=== PATIENT | male | born 1990 | race Caucasian/White ===

== ENCOUNTER → 2018-12-06 | Outpatient (CLI) | payer OTHER ==
[~2018-12-06] MED LIST: AFLURIA 2045 MCG/0.4; ATIVAN0.5 MG PO; ATIVAN1 MG PO; BACLOFEN; BACLOFEN 10MG T10 M1 PO; Baclofen Pump; CHILDREN'S ACET80 MG PO; DIAZEPAM5 MG/5 M1 PO; EFFEXOR XR75 MG PO; LIORESAL I500 MCG/ML; LOPRESSOR25 PO; LORAZEPAM 0.50.5 MG PO; LORTAB PO; METOPROLOL SUCC25 M1 PO; NYSTATIN15 GM TOP; ONDANSETRON HCL4 M2 PO; OXYCODONE20 MG/1 M1 PO; PERCOCET 5-3251 EACH PO; PHENERGAN 25 MG25 M1 PO; PNEUMOVAX25 MCG/0.5; PROZAC 20 MG20 M1 PO; PROZAC40 MG PO; RITALIN10 MG PO; ZOFRAN ODT4 MG PO
== END ==
LOC: HYPER 11-23 13:11
DX: L89.312 Pressure ulcer of right buttock, stage 2 (principal); S91.301D Unspecified open wound, right foot, subsequent encounter; G80.1 Spastic diplegic cerebral palsy; G80.9 Cerebral palsy, unspecified; E66.9 Obesity, unspecified; R60.0 Localized edema; F32.9 Major depressive disorder, single episode, unspecified; F41.9 Anxiety disorder, unspecified; Z68.42 Body mass index [BMI] 45.0-49.9, adult; X58.XXXD Exposure to other specified factors, subsequent encounter

== ENCOUNTER → 2020-02-03 | Outpatient (CLI) | payer OTHER | LOC: HYPER 01-23 16:06 | PROVIDERS: ATTEND Emergency Medicine | DX: I89.0 Lymphedema, not elsewhere classified (principal); G80.1 Spastic diplegic cerebral palsy; G91.4 Hydrocephalus in diseases classified elsewhere; F41.9 Anxiety disorder, unspecified; F32.9 Major depressive disorder, single episode, unspecified ==

== ENCOUNTER → 2020-02-19 | Outpatient (CLI) | payer OTHER | LOC: HYPER 10:53 | PROVIDERS: ATTEND Emergency Medicine | DX: I89.0 Lymphedema, not elsewhere classified (principal); G80.1 Spastic diplegic cerebral palsy; G91.4 Hydrocephalus in diseases classified elsewhere; R60.0 Localized edema; E66.01 Morbid (severe) obesity due to excess calories; F41.9 Anxiety disorder, unspecified; F32.9 Major depressive disorder, single episode, unspecified; Z68.43 Body mass index [BMI] 50.0-59.9, adult ==

== ENCOUNTER → 2020-03-11 | Outpatient (CLI) | payer OTHER | LOC: HYPER 10:54 | PROVIDERS: ATTEND Emergency Medicine | DX: I89.0 Lymphedema, not elsewhere classified (principal); G80.1 Spastic diplegic cerebral palsy; G91.4 Hydrocephalus in diseases classified elsewhere; R60.0 Localized edema; E66.01 Morbid (severe) obesity due to excess calories; F41.9 Anxiety disorder, unspecified; F32.9 Major depressive disorder, single episode, unspecified; Z68.43 Body mass index [BMI] 50.0-59.9, adult ==

== ENCOUNTER → 2020-04-29 | Outpatient (CLI) | payer OTHER | LOC: HYPER 10:28 | PROVIDERS: ATTEND Emergency Medicine | DX: I89.0 Lymphedema, not elsewhere classified (principal); G80.1 Spastic diplegic cerebral palsy; G91.4 Hydrocephalus in diseases classified elsewhere; R60.0 Localized edema; E66.01 Morbid (severe) obesity due to excess calories; F41.9 Anxiety disorder, unspecified; F32.9 Major depressive disorder, single episode, unspecified; Z68.43 Body mass index [BMI] 50.0-59.9, adult ==

== ENCOUNTER 2020-08-19 17:14 | Inpatient (IN) | payer OTHER ==
[~2020-08-19] VITALS: Ht 157.5 cm; Wt 126.5 kg
--- NOTE | ~2020-08-19 | TEE ---
[facility] [place] [address] TRANSESOPHAGEAL ECHOCARDIOGRAM Name: TARUN JONES Room #: 352-P ADM IN M.R.#: [id number] Admission: 08/19/20 Attend Phys: Irvin Moe MD Discharge: Date of : 86 Report #: [id number] THIS REPORT FOR: cc: Maura Mccoy MD, Nora P. MD Santiago, Patrick MD [facility] ~ APPROVED REPORT Study performed: 08/20/2020 10:54:22 EXAM: Comprehensive 2D, Doppler, and color-flow Echocardiogram Patient Location: Bedside Room #: [facility] Status: routine BSA: 2.24 HR: 85 bpm BP: 158/108 mmHg Rhythm: NSR Other Information Study Quality: Poor/Limited measurements Technically limited study due to morbid obesity. Indications Pulmonary Embolism, Elevated BNP, Possible CHF, shortness of breath. Hx: HTN, Cerebral Palsy. 2D Dimensions IVSd: 14.12 (7-11mm) LVOT Diam: 20.52 (18-24mm) LVDd: 38.20 mm PWd: 13.65 (7-11mm) Ascending Ao: 32.02 (22-36mm) LVDs: 30.74 (25-40mm) Aortic Root: 36.95 mm Aortic Valve AoV Peak Manny.: 1.05 m/s AO Peak Gr.: 4.37 mmHg Mitral Valve E/A Ratio: 1.5 MV Decel. Time: 180.64 ms MV E Max Manny.: 1.00 m/s [facility] [address] [address] TRANSESOPHAGEAL ECHOCARDIOGRAM Name: TARUN JONES Room #: 352-P [facility] IN [facility].#: [id number] Admission: 08/19/20 Attend Phys: Marina Nelson Discharge: Date of : 86 Report #: [id number] MV A Manny.: 0.66 m/s MV PHT: 52.38 ms Pulmonary Valve PV Peak Manny.: 0.88 m/s PV Peak Gr.: 3.13 mmHg Tricuspid Valve TR Peak Manny.: 2.66 m/s TR Peak Gr.: 28.26 mmHg Left Ventricle The left ventricle is normal size. Mild concentric left ventricular hypertrophy. Left ventricular systolic function is mild to moderately decreased. LVEF is 45-50% Moderate diastolic dysfunction is present. Right Ventricle Right ventricle is not well visualized but appears dilated and hypokinetic. Atria The left atrium size is normal. Right atrium is not well visualized but appears dilated. Aortic Valve The aortic valve is not well visualized. No aortic regurgitation is seen. There is no aortic valvular stenosis. Mitral Valve The mitral valve is normal in structure. There is no mitral valve regurgitation noted. No evidence of mitral valve stenosis. Tricuspid Valve The tricuspid valve is normal in structure. Trace tricuspid regurgitation. Estimated PAP is 28mmHg plus the right atrial pressure. Pulmonic Valve Pulmonic valve is not well visualized. Great Vessels The aortic root is normal in size. The ascending aorta is normal in size. IVC is not well visualized. Pericardium There is no pericardial effusion. [facility] [address] [place] [address] TRANSESOPHAGEAL ECHOCARDIOGRAM Name: TARUN JONES Flaco Room #: 352-P [facility] IN [facility]#: [id number] Admission: 08/19/20 Attend Phys: Marina Nelson Discharge: Date of : 86 Report #: [id number] <Conclusion> Technically difficult study Normal left ventricle size with mild concentric hypertrophy Ejection fraction 4550 %, mild global hypokinesis Grade 1 diastolic dysfunction Normal right ventricular size/function Normal atrial size Color-flow Doppler study was performed of the aortic/mitral/tricuspid/pulmonary valve Aortic valve not well seen but no obvious of valvular dysfunction detected Normal mitral valve structure and function Trace tricuspid valve insufficiency Pulmonary systolic pressure estimated 28 mmHg No pericardial effusion By: 1226 1226 Sourav eSlby MD, FACC /INF
[~2020-08-19 17:14] MED LIST changes: -BACLOFEN; +BACLOFEN PCA
[2020-08-19 17:23] VITALS: BP 167/103
[2020-08-19 19:01] LABS: ABSOLUTE NEUTROPHILS 8.2 thou/uL (1.4-8.2); BASOPHILS 0.8 % (0.0-2.0); EOSINOPHILS 1.1 % (0.0-3.0); HEMATOCRIT 46.2 % (42.0-52.0); HEMOGLOBIN 14.5 gm/dL (14.0-18.0); LYMPHOCYTES 14.3 % (24.0-44.0); MCH 26.7 pg (26.0-34.0); MCHC 31.5 g/dL (28.0-37.0); MCV 84.7 fL (80.0-100.0); MONOCYTES 8.8 % (1.0-8.0); PLATELET COUNT 282 thou/uL (150-400); RBC 5.45 mil/uL (4.50-6.00); RDW 16.9 % (10.5-14.5)
[2020-08-19] MEDS ORDERED: BUTALB-APAP-CA1 EACH PO (19:03)
[2020-08-19 19:11] LABS: CALCIUM 9.3 mg/dL (8.5-10.1); CREATININE 0.9 mg/dL (0.7-1.3); POTASSIUM 4.1 mmol/L (3.5-5.1)
[2020-08-19 19:16] LABS: ALBUMIN 3.5 g/dL (3.4-5.0); TOTAL BILIRUBIN 0.3 mg/dL (0.2-1.0)
[2020-08-19 23:06] VITALS: BP 139/95
[2020-08-19 23:12] VITALS: BP 144/86
[2020-08-19] MEDS ORDERED: BACLOFEN 10MG T10 MG PO (23:49)
[2020-08-19] MEDS ORDERED: TIZANIDINE HCL4 M2 PO (23:50)
[2020-08-20 00:01] VITALS: BP 116/73
--- NOTE | 2020-08-20 01:44 | NUR ---
PT ADMITTED TO 352 FROM ER AT APPROX 0010. PT AXOX4 ON 3L NC. NURSE TO CONTINUE TO MONIOR AND FOLLOW CARE PLAN.
[2020-08-20 03:57] VITALS: BP 128/79
[2020-08-20 08:08] VITALS: BP 158/108
--- NOTE | 2020-08-20 14:42 | NUR ---
ASSESSMENT: CM REVIEWED CHART AND SPOKE WITH PATIENTS MOTHER WHO WAS AT THE BEDSIDE. PT WAS ADMITTED DUE TO ACUTE HYPOXIC RESPIRATORY FAILURE SECONDARY TO LIKELY PE. PT LIVES IN A HOUSE WITH HIS PARENTS AND HAS A HX OF CEREBRAL PALSY. PT IS WHEELCHAIR BOUND AND USES AN ELECTRIC WHEELCHAIR. PT HAS A RAMP TO ENTER THE HOME. THEY ALSO HAVE A LIFT DEVICE AT PATIENTS HOME. PT IS CURRENTLY ON 3L OXYGEN AND PULM AND ID HAVE BEEN CONSULTED TO SEE PATIENT. PT IS ON IV ANBX. PT WAS TESTED TO INFLUENZA WELL COVID 19 AND IS NEGATIVE. PTS MOTHER REPORT HE HAS HAD HH IN THE PAST BUT THEY ARE UNSURE THE AGENCY. PT DOES NOT HAVE ANY OXYGEN ARRANGED AT THE HOME. PATIENTS FAMILY IS VERY SUPPORTIVE. PTS PCP IS DR. WILLY CHAN. CM WILL CONTINUE TO FOLLOW TO ASSIST NEEDED.
--- NOTE | 2020-08-20 16:56 | NUR ---
CARE ASSUMED AT 0700, PT ALERT AND ORIENTED X4, DENIES ANY NAUSEA AND VOMITTING. COMPLAINS OF BACK PAIN LIDOCAINE PATCH PLACED ON UPPER BACK. PT STATED HE HAS A BACLOFEN PUMP IN HIS LOWER ABDOMEN. CONT. TO BE ON 2L OF OXYGEN, NO SIGNS OF DISTRESS, ANXIOUS AT TIMES. INCONTIENT OF BOWL AND STOOL. PT CHANGED FREQUENTLY. FALL PRECAUTION IN PLACE, WILL CONTINUE TO MONITOR
[2020-08-20 17:07] VITALS: BP 134/76
[2020-08-20 19:42] VITALS: BP 130/77
[2020-08-21] VITALS: BP 130/77
[2020-08-21 04:53] VITALS: BP 132/72
[2020-08-21 05:36] LABS: ABSOLUTE NEUTROPHILS 6.3 thou/uL (1.4-8.2); BASOPHILS 0.5 % (0.0-2.0); HEMATOCRIT 43.6 % (42.0-52.0); HEMOGLOBIN 13.4 gm/dL (14.0-18.0); LYMPHOCYTES 14.3 % (24.0-44.0); MCH 26.3 pg (26.0-34.0); MCHC 30.9 g/dL (28.0-37.0); MCV 85.2 fL (80.0-100.0); MONOCYTES 8.1 % (1.0-8.0); PLATELET COUNT 215 thou/uL (150-400); POLYS 75.1 % (36.0-66.0); RBC 5.11 mil/uL (4.50-6.00); WBC 8.4 thou/uL (4.0-11.0)
[2020-08-21 06:08] LABS: ALBUMIN 3.2 g/dL (3.4-5.0); CREATININE 0.8 mg/dL (0.7-1.3); POTASSIUM 3.7 mmol/L (3.5-5.1); TOTAL BILIRUBIN 0.5 mg/dL (0.2-1.0); TOTAL PROTEIN 7.4 g/dL (6.4-8.2)
--- NOTE | 2020-08-21 06:58 | EKG ---
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: FANTA : 1990 Requested By: Vale Huizar Order Number: [id number] MD: Sourav Selby Measurements Intervals [place] Rate: 94 P: 36 ME: 160 QRS: 98 QRSD: 99 T: 19 QT: 357 QTc: 447 Interpretive Statements Sinus rhythm Borderline right axis deviation Nonspecific T abnormalities, anterior leads Compared to ECG 11/19/2012 11:03:16 No significant changes Electronically Signed On 08-21-2020 6:57:54 BOOK CANVASSER by Sourav Selby [email or web address] <ELECTRONICALLY SIGNED> By: Sourav Selby MD, [facility] 08/21/20 0657 2310 2310 Sourav Selby MD, FACC /EPI
[2020-08-21 07:57] VITALS: BP 145/89
--- NOTE | 2020-08-21 13:45 | NUR ---
SW reviewed chart and spoke with nursing and attending physician. Pt remains on 2L of O2 and IV abx. No weekend discharge planned. Pt was not on O2 prior to admission. Plan is for pt to discharge home when medically stable. SW is following to assist as needed with discharge planning.
--- NOTE | 2020-08-21 17:38 | NUR ---
CARE ASSUMED AT 0700, PT ALERT AND ORIENTED X4, DENIES ANY NAUSEA AND VOMITTING. COMPLAINS OF BACK PAIN LIDOCAINE PATCH PLACED PER ORDER. PT IS NOW ON 1L, NO SIGNS OF DISTRESS NOTED. INCONTINENT OF URINE, CHANGED WHEN NEEDED. PT MOM IN ROOM VIVSITING. FALL PRECAUTIONS IN PLACE. DENIES ANY NEEDS DENNISE. WILL CONTINUE TO MONITOR
[2020-08-21 20:51] VITALS: BP 150/93
--- NOTE | 2020-08-21 23:47 | NUR ---
PT LINDSEY LOPEZ RESULTED IN 17. SPOKE TO PHARMACY AND LEFT MESSAGE ON ID ANSWERING SERVICE.
[2020-08-22 05:09] VITALS: BP 148/95
--- NOTE | 2020-08-22 05:55 | NUR ---
VSS OVERNIGHT, Q2 TURNS, AND PT HAD NUMEROUS BOUTS WITH URINE INCONTINENCE. 02 AT 1L FOR COMFORT. NO COMPLAINTS OF PAIN OVERNIGHT. FOLLOWING POC WITH IVPB ANTIBIOTICS. CALL LIGHT WORKING AND HOURLY ROUNDING.
[2020-08-22 07:22] VITALS: BP 140/98
[2020-08-22 15:10] VITALS: BP 122/79
--- NOTE | 2020-08-22 18:36 | NUR ---
DENIES PAIN. HAD MULTIPLE BMs THROUGH THE DAY. RESPIRATIONS ARE NON LABORED. WILL LIKE TO GO TO [facility] STATING HE IS WEAKER THAN NECESSARY. NO OTHER COMPLAIN.
[2020-08-22 19:41] VITALS: BP 151/93
[2020-08-23 04:18] VITALS: BP 153/91
[2020-08-23 05:28] LABS: ABSOLUTE NEUTROPHILS 7.1 thou/uL (1.4-8.2); BASOPHILS 0.4 % (0.0-2.0); EOSINOPHILS 4.1 % (0.0-3.0); HEMATOCRIT 43.4 % (42.0-52.0); HEMOGLOBIN 13.7 gm/dL (14.0-18.0); LYMPHOCYTES 9.4 % (24.0-44.0); MCH 26.6 pg (26.0-34.0); MCHC 31.6 g/dL (28.0-37.0); MCV 84.2 fL (80.0-100.0); MONOCYTES 6.1 % (1.0-8.0); PLATELET COUNT 212 thou/uL (150-400); RBC 5.15 mil/uL (4.50-6.00); RDW 15.7 % (10.5-14.5); WBC 8.9 thou/uL (4.0-11.0)
[2020-08-23 05:35] LABS: CALCIUM 9.1 mg/dL (8.5-10.1); CREATININE 0.7 mg/dL (0.7-1.3); POTASSIUM 3.6 mmol/L (3.5-5.1)
[2020-08-23 07:21] VITALS: BP 141/82
--- NOTE | 2020-08-23 07:53 | NUR ---
Q2 TURNS AND POC WITH IVPB ANTBIOTICS. ULTRASOUND OF ABDOMEN COMPLETED PER ORDER FROM ID. PT IN GOOD SPIRITS AND LOOKING TO DC TO REHAB. HOURLY ROUNDING.
[2020-08-23 15:18] VITALS: BP 132/78
[2020-08-23 19:28] VITALS: BP 134/78
--- NOTE | 2020-08-23 19:57 | NUR ---
CONT TO BE TACHYCARDIC AND ALSO PYREXIC. TREATED WITH TYLENOL AND CONT ON BOTH AMIO DRIP AND CARDIZEM. PRN PAIN MEDICATION ALSO ADMININISTERED. HE WAS TAKEN OFF ISOLATION THIS AM PER ID. FAMILY UPDATED ON PLAN OF CARE.
--- NOTE | 2020-08-23 20:00 | NUR ---
PATIENT HAS RESTED IN BED THROUGH THE DAY. MOTHER HERE TO VISIT. NO NEW COMPLAINTS. MOTHER NOTIFIED NURSE THAT SHE WILL LIKE PATIENT TO BE ADMITTED IN REHAB POST HOSPITAL STAY. PLEASANT WITH CARES. WILL CONT WITH PLAN OF CARES.
--- NOTE | 2020-08-23 22:48 | NUR ---
PT WATCHING SOCCER ON COMPUTER, POSITIVE HAPPY TALKATIVE. PT CALLED OUT APPROXIMATELY EVERY 30 MINUTES FROM 1900 TO 2100. OBESE WITH BLE EDEMA, REMAINS INCONTINENT. IV ANTIBIOTICS. PRN NC 1L. PT CALLS OUT FOR STAFF TO REPOSITION.
[2020-08-24 04:53] VITALS: BP 123/79
[2020-08-24 07:25] VITALS: BP 132/91
--- NOTE | 2020-08-24 12:37 | NUR ---
PT CARE TAKEN OVER THIS AM, ALERT AND ORIENTED X4, DENIES NAUSEA AND VOMITTING. COMPLAINS OF CHRONIC BACK PAIN, LIDOCAINE PATCH PLACED ON PT BACK. PT ON 1L OF OXYGE FOR COMFORT. PT MOM IN THERE VISITING WITH PT. PT IS INCONTINENT AND CHANGED WHEN NEEDED. FALL PRECAUTIONS IN PLACE. WILL CONTIONUE TO MONITOR
--- NOTE | 2020-08-24 12:42 | NUR ---
Received consult for discharge planning. Pt interested in going to [facility]. Pt is medically stable for discharge. HARI met with pt and his mother at bedside. Pt states he has been to [facility] in the past and would like to return. HARI explained process for referral and also need for insurance authorization. Pt and his mother verbalized understanding. HARI faxed referral to [facility] and spoke with ROA Marquez liaison, who confirmed info has been received. ORA to submit for insurance auth. HARI is following to assist as needed with discharge planning.
[2020-08-24 15:42] VITALS: BP 135/82
[2020-08-24 16:01] LABS: INR 1.1; PROTIME 11.4 Seconds (9.3-11.4)
--- NOTE | 2020-08-24 17:46 | NUR ---
4FRSLML PLACED LUACEPHALIC FOR 2 WEEKS IV CEFEPIME. PLEASE SEE NI FOR DETAILS
[2020-08-24 20:00] VITALS: BP 135/90
--- NOTE | 2020-08-25 01:13 | NUR ---
PLACED PATIENT ON NOC OX ON ROOM AIR AT 2335 ON 08/24/20. NOTIFIED NURSE THAT WE NEEDED TO HAVE A SIX MINUTE DESAT BEFORE PLACING HIM ON OXYGEN. ASKED SKIP MCKEON TO CALL ME IF HE STARTS TO DESAT.
[2020-08-25 04:00] VITALS: BP 147/91
--- NOTE | 2020-08-25 07:43 | HC ---
[facility] [place] [address] [address] [place] [address] CONSULTATION Name: TARUN JONES Room #: 352-P [facility] IN .R.#: [id number] Admission: 08/19/20 Attend Phys: Irvin Moe MD Discharge: Date of : 86 Report #: [id number] THIS REPORT FOR: cc: Maura Mccoy MD, Nora P. MD McKittrick, Richard James MD ~ DATE OF SERVICE: 08/24/2020 REASON FOR CONSULTATION: Anticoagulation in a morbidly obese patient with questionable DVT and PE. HISTORY OF PRESENT ILLNESS: The patient is a 30-year-old male with severe morbid obesity with a BMI of over 50. He came in with several weeks of progressive shortness of breath and perhaps some increased leg swelling. His ultrasound could rule out a clot and also his CAT scan because of severe morbid obesity. There were some suspicious changes, but basically they thought that CT angio was unavailable. The patient was begun on Lovenox 1 mg/kg q.12. The patient has had hypercoag test with several tests including cardiolipin antibodies, beta 2 glycoprotein antibodies. The patient has had lab tests for antithrombin 3, protein C and protein S, APC resistance, anticardiolipin antibodies drawn and pending. The patient thinks that his breathing is feeling better. He is not aware of any bleeding in his urine. He has not had prior clots. He does have a maternal grandfather who had some type of blood clots in his 60s though he has hypertension and was a smoker. The patient at this time denies headache, fevers or chills. He feels his breathing is somewhat better. He has not had any nausea or vomiting. He is not aware of any blood in his urine or stool. PAST MEDICAL HISTORY: Notable for cerebral palsy with a WEED INSPECTOR shunt, he has an intrathecal baclofen pump, also nephrolithiasis, aspiration pneumonia, hypertension, ADD, depression. Note that he also on this admission has had Staphylococcus hominis bacteremia, possibly related to his pump. MEDICATIONS: At this time in the hospital currently include furosemide 20 mg daily, tramadol p.r.n., methylphenidate 10 mg Monday, Monday, Monday, ; Vancomycin 1000 mg q. 8, Lovenox 120 mg b.i.d., metoprolol 25 daily, lidocaine patch daily, tizanidine 4 mg t.i.d. p.r.n., butalbital Tylenol caffeine 2 tabs q. 6 p.r.n., Tylenol p.r.n., MiraLax p.r.n., Zofran p.r.n. PHYSICAL EXAMINATION: VITAL SIGNS: The patient is 5 feet 2, 157.48 cm. Weight is 288 pounds, 130.66 kilograms. BMI calculates out to around 52. Recent blood pressure is 132/91, O2 sat 95%, respirations 20, pulse 109, temperature afebrile, recently 98. MOOD: The patient is alert and pleasant. NEUROLOGIC: Speech and thought pattern appear to be normal. The patient has [address] [address] CONSULTATION Name: TARUN JONES Room #: 352-P [facility] IN ..#: [id number] Admission: 08/19/20 Attend Phys: Irvin Moe MD Discharge: Date of : 86 Report #: [id number] minimal movement of legs. He is able to use arms and fingers to access phone and call his mother during our interview. LYMPHATICS: No enlarged lymph nodes. LUNGS: Appear mostly clear, but there are distant given his body habitus. ABDOMEN: Very obese. No definite organomegaly. EXTREMITIES: Do have some trace edema, perhaps left a little bit more than right. LABORATORY DATA: Has a BUN of 10, creatinine of 0.7. Recent transaminases had been normal. Recent white count 8.9, hemoglobin 13.7, MCV 84.2, platelets 212. Differential nonacute. As mentioned above antithrombin III, protein C and protein S APC resistance and anticardiolipin antibodies are pending. Sed rate had been 27. Microbiology had been positive on 08/19/2020 for Staphylococcus hominis in blood cultures x 2. ASSESSMENT AND PLAN: 1. Question of deep vein thrombosis, questionable pulmonary emboli, currently on Lovenox. Discussed with the patient and mother that given his body habitus, imaging has been difficult, but we clinically or suspicious that may have had either deep vein thrombosis and/or pulmonary embolus and felt that it was clinically safer to anticoagulate or not. Therapeutic options would include Coumadin, which can be dose adjusted or the Lovenox. The Lovenox will need a check an anti-Xa level and this was done, which I would suggest to be done would be 3 or 4 hours after injection and follow the guidelines for dose adjustment. I would be concerned about use of oral agents such as Xarelto, Eliquis and Pradaxa. They have very limited experience in patients that are obese or morbidly obese as this this patient is severely morbidly obese and we don't know whether these anticoagulants are as effective or safe as in studied patients who are at a much lower BMI. We would defer to others whether they wish to try him with Coumadin or Lovenox. We would also then give consideration to checking DRVVT and hexagonal phase phospholipid and the patient has been off 2 or 3 days of therapy. Would suggest consideration of 6 months of therapy, then consider stoppinganticoagulant therapy. What takes place between now and that time may of course influence the decision at that time. I am hoping that this clot may be considered provoked and related to his Staph hominis bacteremia. This is a difficult situation having to weigh the benefits of the blood thinner versus the dangers when we are not really even sure if he had a clot and hard to assess. Would probably continue anticoagulation for 6 months, stop therapy for 3 months, check additional blood tests at that time. I would be happy to see the patient again for help and reassessing in 6 months if the team would like me to. We will defer to the patient's primary doctor, Dr. Maura Mccoy. [address] [address] CONSULTATION Name: TARUN JONES Flaco Room #: 352-P [facility] IN .R.#: [id number] Admission: 08/19/20 Attend Phys: Irvin Moe MD Discharge: Date of : 86 Report #: [id number] 2. Staphylococcus hominis bacteremia, followed by Infectious Disease. We will defer to them whether pump needs to be removed or not. 3. History of cerebral palsy. Defer rehab and meds to others. 4. Morbid obesity, also contributing to the patient's risk for clots and future clots. We will strongly encourage calorie reduction to reduce BMI. 5. Hypertension, meds per others. 6. Depression, meds per others. 7. Attention deficit disorder, meds per others. We will be available if questions arise. <ELECTRONICALLY SIGNED> By: Adan Greco MD 08/25/20 0743 0821 0845 Adan Greco MD /nt
[2020-08-25 07:45] VITALS: BP 148/97
--- NOTE | 2020-08-25 11:41 | NUR ---
HARI reviewed chart and spoke with nursing and attending physician. Pt is medically stable for discharge. HARI contacted Alma at [facility] who states that insurance auth is still pending. HARI met with pt and his mother at bedside to provide update. Both verbalized understanding. HARI is following to assist as needed with discharge planning.
--- NOTE | 2020-08-25 14:32 | 2DMMODE ---
[facility] [place] [address] 2 D/M-MODE ECHOCARDIOGRAM Name: TARUN JONES A Room #: 352-P ADM IN M.R.#: [id number] Admission: 08/19/20 Attend Phys: Irvin Moe MD Discharge: Date of : 86 Report #: [id number] THIS REPORT FOR: cc: Maura Mccoy MD, Nora P. MD Santiago, Patrick MD [facility] Rian Mancini ~ Sex/Age : M/30Y Height/Weight : 157.5cm/131.5kg Patient Name : TARUN JONES Study Date : 2020-08-20 BSA : 2.24? Requesting Name : ECHO STANDARD W/O CONTRAST Date of : 1990 Request Doctor : RIAN MANCINI Department : CARD --< Approved Report > Study performed: 08/20/2020 10:54:22 EXAM: Comprehensive 2D, Doppler, and color-flow Echocardiogram Patient Location: Bedside Room #: 352 Status: routine BSA: 2.24 HR: 85 bpm BP: 158/108 mmHg Rhythm: NSR Other Information Study Quality: Poor/Limited measurements Technically limited study due to morbid obesity. Indications Pulmonary Embolism, Elevated BNP, Possible CHF, shortness of breath. Hx: HTN, Cerebral Palsy. 2D Dimensions IVSd: 14.12 (7~11mm) LVOT Diam: 20.52 (18~24mm) LVDd: 38.20 mm PWd: 13.65 (7~11mm) Ascending Ao: 32.02 (22~36mm) LVDs: 30.74 (25~40mm) Aortic Root: 36.95 mm Aortic Valve [facility] [address] [place] [address] 2 D/M-MODE ECHOCARDIOGRAM Name: TARUN JONES Flaco Room #: 352-P [facility] IN [facility]#: [id number] Admission: 08/19/20 Attend Phys: Marina Nelson Discharge: Date of : 86 Report #: [id number] AoV Peak Manny.: 1.05 m/s AO Peak Gr.: 4.37 mmHg Mitral Valve E/A Ratio: 1.5 MV Decel. Time: 180.64 ms MV E Max Manny.: 1.00 m/s MV A Manny.: 0.66 m/s MV PHT: 52.38 ms Pulmonary Valve PV Peak Manny.: 0.88 m/s PV Peak Gr.: 3.13 mmHg Tricuspid Valve TR Peak Manny.: 2.66 m/s TR Peak Gr.: 28.26 mmHg Left Ventricle The left ventricle is normal size. Mild concentric left ventricular hypertrophy. Left ventricular systolic function is mild to moderately decreased. LVEF is 45-50% Moderate diastolic dysfunction is present. Right Ventricle Right ventricle is not well visualized but appears dilated and hypokinetic. Atria The left atrium size is normal. Right atrium is not well visualized but appears dilated. Aortic Valve The aortic valve is not well visualized. No aortic regurgitation is seen. There is no aortic valvular stenosis. Mitral Valve The mitral valve is normal in structure. There is no mitral valve regurgitation noted. No evidence of mitral valve stenosis. Tricuspid Valve The tricuspid valve is normal in structure. Trace tricuspid regurgitation. Estimated PAP is 28mmHg plus the right atrial pressure. Pulmonic Valve Pulmonic valve is not well visualized. Great Vessels The aortic root is normal in size. The ascending aorta is normal in size. IVC is [facility] [address] [place] [address] 2 D/M-MODE ECHOCARDIOGRAM Name: TARUN JONES Flaco Room #: 352-P [facility] IN ..#: [id number] Admission: 08/19/20 Attend Phys: Marina Nelson Discharge: Date of : 86 Report #: [id number] not well visualized. Pericardium There is no pericardial effusion. <Conclusion> Technically difficult study Normal left ventricle size with mild concentric hypertrophy Ejection fraction 45 50 %, mild global hypokinesis Grade 1 diastolic dysfunction Normal right ventricular size/function Normal atrial size Color-flow Doppler study was performed of the aortic/mitral/tricuspid/pulmonary valve Aortic valve not well seen but no obvious of valvular dysfunction detected Normal mitral valve structure and function Trace tricuspid valve insufficiency Pulmonary systolic pressure estimated 28 mmHg No pericardial effusion Electronically Approved : 08/25/2020 14:26:38 By: [id number] [id number] Sourav Selby MD, FACC /
[2020-08-25 15:49] VITALS: BP 145/83
[2020-08-25 20:46] VITALS: BP 154/85
[2020-08-26 04:29] VITALS: BP 144/92
[2020-08-26 05:58] LABS: INR 1.2; PROTIME 12.5 Seconds (9.3-11.4)
--- NOTE | 2020-08-26 06:19 | NUR ---
PT IS A/OX4. Q2 TURNS. PT IS INCONTINENT TO BOTH BLADDER AND BOWEL. ID RESTARTED VANCO AND DC THE CEFAZOLIN DUE TO POSSIBLE REACTION WITH PT. PT STATED AFTER 1ST DOSE BE BEGAN TO ITCH, ORAL BENADRYL WAS GIVEN THEN. NO FURTHER DOSES WERE GIVEN. PT STILL WAITING ON INSURANCE AUTHORIZATION TO AUG. PT CAN USE CALL LIGHT EFFECTIVELY.
[2020-08-26 08:14] VITALS: BP 146/82
[2020-08-26 09:02] VITALS: BP 146/82
[2020-08-26] MEDS ORDERED: ENOXAPARIN120 MG/0.1 SUBQ (10:55)
[2020-08-26] MEDS ORDERED: VANCO 1 GR1 GM/250 M IVPB (10:55)
[2020-08-26] MEDS ORDERED: LIDOPATCH1 EACH TRANSDERM (10:55)
[2020-08-26] MEDS ORDERED: MIRALAX17 GM PO (10:55)
[2020-08-26] MEDS ORDERED: LASIX 20 MG TAB20 MG PO (10:55)
[2020-08-26] MEDS ORDERED: WARFARIN SODIUM5 MG PO (10:55)
--- NOTE | 2020-08-26 13:25 | NUR ---
DISCHARGE NOTE: HARI reviewed chart and spoke with nursing and attending physician. Pt is medically stable for discharge. HARI faxed clinical/therapy updates to [facility]. SW received call from Emily in intake, stating they received insurance authorization and can accept pt today. Wheelchair van transportation scheduled for 1500 per facility's arrangements. Pt's w/c is in his room. HARI spoke with pt's mother, Bebe, via phone to provide update. Both pt and his mother are agreeable with discharge plan. HARI faxed finalized discharge orders/summary to [facility]. Received confirmation. Chart copy requested. Nursing provided with number to call report. No additional SW needs identified at this time, but is available to assist should needs arise.
== END 2020-08-26 15:54 | DRG 871 ==
LOC: ER 17:14 → EROBS 22:55 → 3W 22:55 → EROBS 23:16 → 3W 23:49
PROVIDERS: Internal Medicine; Physician Assistant; Specialist; ADMIT Hospitalist; ATTEND Hospitalist
DX: A41.89 Other specified sepsis (principal); I26.99 Other pulmonary embolism without acute cor pulmonale; J96.01 Acute respiratory failure with hypoxia; J69.0 Pneumonitis due to inhalation of food and vomit; Z68.43 Body mass index [BMI] 50.0-59.9, adult; I42.9 Cardiomyopathy, unspecified; G80.9 Cerebral palsy, unspecified; E66.01 Morbid (severe) obesity due to excess calories; F32.9 Major depressive disorder, single episode, unspecified; N20.0 Calculus of kidney; G89.4 Chronic pain syndrome; I11.0 Hypertensive heart disease with heart failure; I50.9 Heart failure, unspecified; Z79.899 Other long term (current) drug therapy; Z91.040 Latex allergy status; Z20.822 Contact with and (suspected) exposure to COVID-19; Z88.5 Allergy status to narcotic agent; Z88.0 Allergy status to penicillin; Z88.8 Allergy status to other drugs, medicaments and biological substances; Z91.09 Other allergy status, other than to drugs and biological substances; Z99.3 Dependence on wheelchair; Z82.49 Family history of ischemic heart disease and other diseases of the circulatory system
CPT/HCPCS: 10879; 27000

== ENCOUNTER → 2020-12-02 | Outpatient (CLI) | payer OTHER ==
[~2020-12-02] MED LIST changes: +BACLOFEN 10MG T10 MG PO; +BUTALB-APAP-CA1 EACH PO; +ENOXAPARIN120 MG/0.1 SUBQ; +LASIX 20 MG TAB20 MG PO; +LIDOPATCH1 EACH TRANSDERM; +MIRALAX17 GM PO; +TIZANIDINE HCL4 M2 PO; +VANCO 1 GR1 GM/250 M IVPB; +WARFARIN SODIUM5 MG PO
== END ==
LOC: RAD 08:52
PROVIDERS: ATTEND Pediatrics
DX: R06.09 Other forms of dyspnea (principal); R06.02 Shortness of breath